=== PATIENT | male | born 1985 | race African-American/Black ===

== ENCOUNTER 2020-06-14 10:42 | Emergency (ER) | payer MEDICAID ==
[~2020-06-14] VITALS: Ht 165.1 cm; Wt 59.0 kg
[2020-06-14 11:29] LABS: EOSINOPHILS % 0.2 % (0.0-5.0); HEMATOCRIT. 41.5 % (42.0-52.0); LYMPHOCYTES % 15.5 % (20.0-50.0); MEAN CORPUSCULAR HEMOGLOBIN 32.8 pg (28.0-32.0); MEAN CORPUSCULAR VOLUME 97.3 fL (80.0-94.0); MEAN PLATELET VOLUME 9.3 fl (7.4-10.4); MONOCYTES % 7.8 % (2.0-8.0); NEUTROPHILS % 75.5 % (40.0-76.0); PLATELET 245 x1000/uL (130-400); RED BLOOD CELL COUNT 4.26 mill/uL (4.7-6.1); RED CELL DISTRIBUTION WIDTH 13.4 % (11.6-14.6)
[2020-06-14 11:37] LABS: CHLORIDE 110 mEq/L (98-107)
[2020-06-14 11:40] LABS: PROTHROMBIN TIME 10.6 sec (9.6-11.0)
[2020-06-14 11:41] LABS: ETHANOL BLOOD < 10 mg/dL
[2020-06-14 11:46] LABS: CREATINE KINASE 214 IU/L (39-308)
[2020-06-14 13:00] VITALS: BP 112/79
== END 2020-06-14 16:05 | disposition home or self-care (01) ==
LOC: ER 10:42 → EDBD 10:42 → ER 16:05
DX: T65.91XA Toxic effect of unspecified substance, accidental (unintentional), initial encounter (principal); Y92.89 Other specified places as the place of occurrence of the external cause; Z98.890 Other specified postprocedural states; Z59.0 Homelessness
CPT/HCPCS: 36415; 71045; 80053; 80307; 80320; 80329; 82140; 82550; 83605; 83690; 84443; 84484; 85025; 85610; 93005; 99285; Z7610; G0480